=== PATIENT | male | born 1980 | race Caucasian/White ===

== ENCOUNTER 2016-07-23 10:51 | Emergency (ER) | payer OTHER | END 2016-07-23 11:45 | disposition home or self-care (01) | LOC: ER 10:51 | DX: M25.511 Pain in right shoulder (principal); F17.210 Nicotine dependence, cigarettes, uncomplicated; X50.0XXA Overexertion from strenuous movement or load, initial encounter; Y92.69 Other specified industrial and construction area as the place of occurrence of the external cause; Y99.0 Civilian activity done for income or pay ==

== ENCOUNTER 2016-08-29 10:13 | Emergency (ER) | payer OTHER | END 2016-08-29 11:29 | disposition home or self-care (01) | LOC: ER 10:13 | DX: G89.18 Other acute postprocedural pain (principal); M25.511 Pain in right shoulder; G89.29 Other chronic pain; F17.210 Nicotine dependence, cigarettes, uncomplicated; Z79.899 Other long term (current) drug therapy | CPT/HCPCS: 96372; J2550 ==